=== PATIENT | male | born 1975 | race Caucasian/White ===

== ENCOUNTER 2020-02-03 08:18 | Emergency (ER) | payer BC ==
[~2020-02-03] VITALS: Ht 180.3 cm; Wt 94.5 kg
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
[2020-02-03 09:19] LABS: BASO % 1 % (0-3); EOS # 0.3 x10^3/uL (0.0-0.7); EOS % 5 % (0-3); HEMATOCRIT 46.8 % (39.0-53.0); HEMOGLOBIN 15.8 g/dL (13.0-17.5); LYMPH # 2.1 x10^3/uL (1.0-4.8); LYMPH % 31 % (24-48); MEAN CORPUSCULAR HEMOGLOBIN 29 pg (25-35); MEAN CORPUSCULAR HGB CONC 34 g/dL (31-37); MEAN CORPUSCULAR VOLUME 86 fL (79-100); MONO # 0.5 x10^3/uL (0.0-1.1); MONO % 8 % (0-9); NEUT # 3.7 x10^3uL (1.8-7.7); NEUT % 55 % (31-73); PLATELET COUNT 249 x10^3/uL (140-400); RED BLOOD COUNT 5.43 x10^6/uL (4.30-5.70); WHITE BLOOD COUNT 6.7 x10^3/uL (4.0-11.0)
[2020-02-03 09:29] LABS: CALCIUM 8.7 mg/dL (8.5-10.1); CREATININE 1.1 mg/dL (0.7-1.3); GFR 72.7; POTASSIUM 3.9 mmol/L (3.5-5.1)
[2020-02-03 09:33] LABS: AMPHETAMINE/METHAMPHETAMINE NEG (NEG); BARBITURATES NEG (NEG); BENZODIAZEPINES NEG (NEG); CANNABINOIDS NEG (NEG); COCAINE NEG (NEG); METHADONE NEG (NEG); OPIATES NEG (NEG); PHENCYCLIDINE NEG (NEG)
[2020-02-03 09:36] LABS: ALBUMIN 4.2 g/dL (3.4-5.0); ALBUMIN/GLOBULIN RATIO 1.2 (1.0-1.7); MAGNESIUM 2.2 mg/dL (1.8-2.4); TOTAL BILIRUBIN 0.5 mg/dL (0.2-1.0); TOTAL PROTEIN 7.7 g/dL (6.4-8.2)
[2020-02-03 09:48] LABS: ACETAMIN < 2.0 mcg/mL (10-30); ETHANOL < 10 mg/dL (0-10); SALIC < 2.8 mg/dL (2.8-20.0)
[2020-02-03 15:56] VITALS: BP 144/84
== END 2020-02-03 16:40 | disposition short-term general hospital (02) ==
LOC: ER 08:18
DX: F31.9 Bipolar disorder, unspecified (principal); R45.851 Suicidal ideations
CPT/HCPCS: 36415; 80053; 80307; 80329; 83735; 85025; 99285; G0480